=== PATIENT | female | born 1985 | race Caucasian/White ===

== ENCOUNTER 2019-07-17 07:11 | Inpatient (IN) | payer OTHER ==
--- NOTE | 2019-07-16 21:52 | PDOC.LDHP ---
Labor and Delivery H&P Chief complaint: scheduled induction Current gestational age (weeks): 39 Due date: 07/18/19 Dating criteria: last menstrual period Grav: 5 Para: 2 Current complications: none Abnormal US findings: No Current medications: pre- vitamins Previous surgical history: none (LEEP of Cervix) Allergies/Adverse Reactions: Allergies Allergy/AdvReac Type Severity Reaction Status Date / Time No Known Allergies Allergy Verified 03/27/14 22:05 Social history: none - Physical Exam Vital signs reviewed and normal: yes General: NAD Heart: RRR Abdomen: NTTP Extremeties: no edema FHT: category 1 - OB Labs Blood type: A RH: positive Antibody Screen: negative HIV: negative RPR: negative HEPSAg: negative 1 hour GCT: negative GBS: negative Urine drug screen: negative Rubella: immune - Assessment L&D Assessment: elective induction at term - Plan Plan: admit to L&D, labor augmentation if indicated, informed consent obtained, anesthesia consult for pain management
[2019-07-17] MEDS ORDERED: NS w/ Oxytocin 10 units 500 ML IV SCH (07:12)
[2019-07-17] MEDS ORDERED: NS / Oxytocin 40 units/1000ml 1,000 ML IV PRN (07:12)
[2019-07-17] MEDS ORDERED: Lidocaine 1% (PF) 30 ML VIAL SC PRN (07:12)
[2019-07-17] MEDS ORDERED: Acetaminophen 500 MG TAB PO PRN (07:12)
[2019-07-17] MEDS ORDERED: Promethazine HCl 25 MG/ML VIAL IM PRN ×2 (07:12→09:21)
[2019-07-17] MEDS ORDERED: Ondansetron PF 4 MG/2 ML Vial IVP PRN ×2 (07:12→09:21)
[2019-07-17] MEDS ORDERED: Misoprostol 200 MCG TAB PR PRN (07:12)
[2019-07-17] MEDS ORDERED: Butorphanol Tartrate 1 MG/ML VIAL SLOW IVP PRN (07:12)
[2019-07-17] MEDS ORDERED: Ibuprofen 800 MG TAB PO PRN (07:12)
[2019-07-17] MEDS ORDERED: hydrALAZINE 20 MG/ML VIAL SLOW IVP PRN ×2 (07:12→17:08)
[2019-07-17] MEDS: Lactated Ringer's 1,000 ML IV SCH (07:30)
[2019-07-17 07:59] VITALS: BMI 31.6
[2019-07-17 08:03] LABS: Hemoglobin 13.6 g/dL (12.0-16.0); Mean Corpuscular HGB CONC 34.9 g/dL (32.0-36.0); Mean Corpuscular Hemoglobin 29.7 pg (27.0-31.0); Mean Corpuscular Volume 85.1 fL (78.0-98.0); Mean Platelet Volume 8.8 fL (7.4-10.4); Platelet Count 115 thou/uL (130-400); RBC Distribution Width 12.4 % (11.5-14.5); Red Blood Cell (RBC) Count 4.57 mill/uL (4.20-5.40); White Blood Cell (WBC) Count 9.6 thou/uL (4.8-10.8)
[2019-07-17] MEDS ORDERED: Fentanyl 4 mcg/Bup 0.1% Cadd 100 ML ONE ×2 (08:14→16:18)
[2019-07-17] MEDS ORDERED: FLU VACC QS2019-20(6MOS UP)/PF 60 MCG/0.5 ML SYRINGE IM ONE (08:15)
[2019-07-17 08:35] LABS: HBSAg Index 0.19 S/CO (0-0.99); Hep B Surf Ag Non-Reactive S/CO (NonReactive); Syphilis Antibody Nonreactive (Nonreactive); Syphilis Antibody Index 0.02 S/CO (<1.00 Non-Reactive)
[2019-07-17] MEDS ORDERED: Lactated Ringer's 500 ML IV PRN (09:21)
[2019-07-17] MEDS ORDERED: Naloxone HCl 0.4 mg/ml Vial IVP PRN ×2 (09:21)
[2019-07-17] MEDS ORDERED: ePHEDrine/0.9% NaCl/PF SYRINGE 50 mg/10 ml SLOW IVP PRN (09:21)
[2019-07-17] MEDS ORDERED: Acetaminophen 325 MG TAB PO PRN (09:21)
[2019-07-17] MEDS ORDERED: diphenhydrAMINE 50 MG/ML VIAL IVP PRN (09:21)
[2019-07-17] MEDS ORDERED: Communication Order-Pharmacy FS PRN (09:30)
[2019-07-17] MEDS: Fentanyl 4 mcg/Bupivacaine 0.1% Cassette 100 ML EPIDURAL SCH ×2 (11:27→16:24)
[2019-07-17] MEDS ORDERED: Bisacodyl 10 MG SUPP PR PRN (17:08)
[2019-07-17] MEDS ORDERED: Benzocaine-Menthol 82.5 ML CAN TOP PRN (17:08)
[2019-07-17] MEDS ORDERED: traMADol HCl 50 MG TAB PO PRN (17:08)
[2019-07-17] MEDS ORDERED: Preparation H Ointment 28 GM TUBE PR PRN (17:08)
[2019-07-17] MEDS ORDERED: Lanolin Ointment 7 GM TUBE TOP PRN (17:08)
[2019-07-17] MEDS ORDERED: diphenhydrAMINE 25 MG CAP PO PRN (17:08)
[2019-07-17] MEDS ORDERED: Milk Of Magnesia 30 ML UDCUP PO PRN (17:08)
--- NOTE | 2019-07-17 17:08 | PDOC.OPDEL ---
OB Operative/Delivery Note Delivery Dr/Surgeon: Moon Pre-Delivery Diagnosis: elective induction Procedure/Post Delivery Dx: spontaneous vaginal delivery Weeks gestation: 40 Anesthesia: epidural - Findings A Sex: male - 1 min: 9 - 5 min: 9 - Additional Findings/Plan Placenta delivered: spontaneous Repaired Obstetrical Laceration: none Estimated blood loss: qbl 20 ml Post delivery plan: routine recovery
[2019-07-17] MEDS ORDERED: NS / Oxytocin 40 units/1000ml 1,000 ML IV SCH (17:15)
[2019-07-17] MEDS: Docusate Calcium (SURFAK) 240 MG CAP PO SCH (21:33)
[2019-07-17] MEDS: Ibuprofen 800 MG TAB PO SCH (21:33)
[2019-07-18] MEDS: Lactated Ringer's 1,000 ML IV SCH (00:32)
[2019-07-18] MEDS: Ibuprofen 800 MG TAB PO SCH ×3 (04:55→21:20)
--- NOTE | 2019-07-18 07:51 | PDOC.PP ---
Post Progress Note Post Day #: 1 Subjective: Working on feeding... Otherwise; doing well. Vital Signs (12 hours) Temp Pulse Resp BP Pulse Ox 07/18/19 04:55 98.1 F 77 18 102/64 07/18/19 01:03 98.4 F 69 18 103/58 L 07/17/19 20:40 98.2 F 84 18 113/73 07/17/19 19:50 98.3 F 75 18 117/72 99 Weight Weight 173 lb Result Diagrams: 07/17/19 07:46 Additional Labs: Post Labs Blood Type A POSITIVE 07/17/19 07:46 Hep Bs Antigen Non-Reactive S/CO (NonReactive) 07/17/19 07:46 - Assessment/Plan Post day 1-. Routine care. Discharge in AM..
[2019-07-18] MEDS: Prenatal Vitamin 1 TAB PO SCH (09:16)
[2019-07-18] MEDS: Docusate Calcium (SURFAK) 240 MG CAP PO SCH ×2 (09:17→21:20)
[2019-07-18] MEDS: Ferrous Sulfate 325 MG TAB PO SCH ×2 (09:19→16:28)
[2019-07-18] MEDS ORDERED: Adacel (T-DAP) 0.5 ML SYRINGE IM ONE (17:08)
[2019-07-19] MEDS: Ibuprofen 800 MG TAB PO SCH (06:04)
[2019-07-19] MEDS: Ferrous Sulfate 325 MG TAB PO SCH (07:51)
[2019-07-19 08:04] VITALS: BP 102/65; TEMP 98.5
--- NOTE | 2019-07-19 08:15 | PDOC.PP ---
Post Progress Note Post Day #: 2 PO intake tolerated: yes Flatus: yes Ambulation: yes Vital Signs (12 hours) Temp Pulse Resp BP Pulse Ox 07/19/19 07:15 98.5 F 71 14 102/65 98 Weight Weight 173 lb Result Diagrams: 07/17/19 07:46 Additional Labs: Post Labs Blood Type A POSITIVE 07/17/19 07:46 Hep Bs Antigen Non-Reactive S/CO (NonReactive) 07/17/19 07:46 - Assessment/Plan Doing well post day 2-discharge home. F/u 6 weeks.
[2019-07-19] MEDS: Docusate Calcium (SURFAK) 240 MG CAP PO SCH (08:25)
[2019-07-19] MEDS: Prenatal Vitamin 1 TAB PO SCH (08:26)
[2019-07-19] MEDS ORDERED: FLU VACC QS2019-20(6MOS UP)/PF 60 MCG/0.5 ML SYRINGE IM ONE (13:00)
== END 2019-07-19 13:20 | disposition home or self-care (01) | DRG 807 ==
LOC: L&D 07:11 → 3SW 19:52 → EDSTATUS 07-18 07:09
PROVIDERS: ADMIT Obstetrics & Gynecology; ATTEND Obstetrics & Gynecology
PROC: 10E0XZZ Delivery of Products of Conception, External Approach (ICD-10-PCS; principal; 2019-07-18)
PROC: 3E0P7VZ Introduction of Hormone into Female Reproductive, Via Natural or Artificial Opening (ICD-10-PCS; 2019-07-18)
PROC: 3E033VJ Introduction of Other Hormone into Peripheral Vein, Percutaneous Approach (ICD-10-PCS; 2019-07-18)
PROC: 3E02340 Introduction of Influenza Vaccine into Muscle, Percutaneous Approach (ICD-10-PCS; 2019-07-18)
DX: O80 Encounter for full-term uncomplicated delivery (principal); Z37.0 Single live birth; Z3A.39 39 weeks gestation of pregnancy; Z23 Encounter for immunization
CPT/HCPCS: 36415; 85027; 86780; 86850; 86900; 86901; 87340; 90471; 90686; G0008; J2590

== ENCOUNTER 2020-11-21 09:06 | Day surgery (SDC) | payer OTHER ==
[2020-11-20 15:23] VITALS: BMI 27.1
[2020-11-21] MEDS ORDERED: Fentanyl 100 MCG/2 ML VIAL ONE (10:14)
[2020-11-21] MEDS ORDERED: Midazolam HCl 2 mg/2 ml Vial ONE (10:14)
[2020-11-21 10:17] LABS: SARS-CoV-2 NAA Rapid Test Not Detected (NotDetected)
[2020-11-21] MEDS ORDERED: Glycopyrrolate 0.2 MG/ML 5 ML SYRINGE ONE (10:43)
[2020-11-21] MEDS ORDERED: PROPOFOL 200 MG/20 ML VIAL ONE (10:43)
[2020-11-21] MEDS ORDERED: Lidocaine 1% PF 5 ML VIAL ONE (10:43)
[2020-11-21] MEDS ORDERED: ePHEDrine 50 MG/ML VIAL ONE (10:43)
[2020-11-21] MEDS ORDERED: PHENYLEPHRINE-NS 100 MCG/ML 10 ML SYRINGE ONE (10:43)
[2020-11-21] MEDS ORDERED: Dexamethasone 20 MG/5 ML VIAL ONE (10:43)
[2020-11-21] MEDS ORDERED: Ketorolac Tromethamine 30 MG/ML VIAL ONE (10:43)
[2020-11-21] MEDS ORDERED: Ondansetron PF 4 MG/2 ML Vial ONE (10:43)
[2020-11-21] MEDS ORDERED: Misoprostol 200 MCG TAB ONE (11:12)
== END 2020-11-21 13:20 | disposition home or self-care (01) ==
LOC: SDC 09:06
PROVIDERS: ATTEND Obstetrics & Gynecology
PROC: 10D18ZZ Extraction of Products of Conception, Retained, Via Natural or Artificial Opening Endoscopic (ICD-10-PCS; principal; 2020-11-21)
DX: O02.1 Missed abortion (principal)
CPT/HCPCS: 88305; J0690; J1100; J1885; J2250; J2405; J2704; J3010; J3490; U0002

== ENCOUNTER 2023-11-29 09:37 | Outpatient (CLI) | payer BC | END 2023-11-29 09:38 | disposition home or self-care (01) | LOC: BICMAMMO 09:37 | PROVIDERS: ATTEND Family Medicine | DX: Z12.31 Encounter for screening mammogram for malignant neoplasm of breast (principal); Z80.3 Family history of malignant neoplasm of breast | CPT/HCPCS: 77063; 77067 ==

== ENCOUNTER 2024-12-14 08:29 | Outpatient (CLI) | payer BC | END 2024-12-14 08:30 | disposition home or self-care (01) | LOC: BICMAMMO 08:29 | PROVIDERS: ATTEND Family Medicine | DX: R92.8 Other abnormal and inconclusive findings on diagnostic imaging of breast (principal) | CPT/HCPCS: G0279 ==